=== PATIENT | female | born 2000 | race Caucasian/White ===

== ENCOUNTER 2021-04-11 14:05 | Emergency (ER) | payer OTHER, SELFPAY ==
--- NOTE | ~2021-04-11 | CT_ITS ---
EXAMINATION: CT abdomen pelvis w con DATE: 04/11/2021 15:57 INDICATION: Right lower quadrant abdominal pain. Vomiting. TECHNIQUE: Computed tomography (CT) of the abdomen and pelvis was performed with 100 mL Omnipaque 350 intravenous contrast. Automated exposure control and iterative reconstruction technique were employe d. The dose-length product was 1066.03 mGy-cm. COMPARISON: None. FINDINGS: The visualized portions of the lung bases are clear without pneumonia or pleural effusion. The heart size is normal. No pericardial effusion. The liver, gallbladder, spleen, pancreas, adrenal glands, and right kidney are normal. There is a 7 mm cyst in left kidney. There is a 2 mm stone in le ft kidney. There is an intrauterine device in expected position. There are no dilated loops of bowel. The appendix is normal. There are no pathologically enlarged lymph nodes. There is physiologic fluid in the pelvis. There is mild thoracic spondylosis. IMPRESSION: 1. No etiology for the patient's symptoms. Reviewed, dictated and finalized at location A.
[2021-04-11 14:13] VITALS: BP 121/65; PULSE 97; RESP 16; TEMP 37.3; O2SAT 100
--- NOTE | 2021-04-11 14:20 | ED.ABDPAIN ---
HPI - Abdominal Pain General Chief Complaint: Abdominal Pain Stated Complaint: RUQ pain Time Seen by Provider: 04/11/21 14:08 Source: patient and family Mode of arrival: ambulatory Limitations: no limitations History of Present Illness HPI narrative: This is a 21-year-old female that presents to the emergency department for right-sided abdominal pain present x5 days. Associated with nausea and vomiting. Also reports subjective fevers and intermittent diarrhea. Denies chest pain, shortness of breath, dysuria or hematuria. Related Data Home Medications Medication Instructions Recorded Confirmed apixaban [Eliquis] mg 04/11/21 plecanatide [Trulance] mg 04/11/21 tegaserod hydrogen maleate mg PO 04/11/21 [Zelnorm] venlafaxine mg PO 04/11/21 Allergies Allergy/AdvReac Type Severity Reaction Status Date / Time [place] And Derivatives Allergy Unknown hives Verified 11/13/15 16:16 orange flavor Allergy Unknown Verified 03/04/17 23:39 Sulfa (Sulfonamide Allergy Unknown hives Verified 11/13/15 16:15 Antibiotics) Review of Systems Review of Systems: CONSTITUTIONAL: Denies fever CARDIOVASCULAR: Denies chest pain, or edema. RESPIRATORY: Denies dyspnea. GASTROINTESTINAL: Reports abdominal pain, nausea, vomiting, and diarrhea. GENITOURINARY: Denies dysuria or hematuria. All systems reviewed & are unremarkable except as noted in HPI and below PMFSH Past Medical History Medical History (Updated 04/11/21 @ 16:31 by Ana Mena PA-C) History of DVT (deep vein thrombosis) History of IBS History of pulmonary embolism Social History Social History Smoking status: Never smoker Exam Narrative: GENERAL: Well-appearing, well-nourished, and in no acute distress. HEAD: Normocephalic, atraumatic. EYES: EOMI. CHEST: Clear to auscultation. No respiratory distress. No wheezes rales or rhonchi HEART: Regular rate and rhythm. No murmur heard. Normal peripheral pulses. ABDOMEN: Soft, nondistended, normal active bowel sounds. Tender to palpation in the right upper and lower quadrant, without guarding. EXTREMITIES: Normal range of motion. No edema. SKIN: Warm, dry, no rash. NEURO: No focal deficits. Alert and oriented x3. PSYCH: Normal mood and affect Course Vital Signs Vital signs: Vital Signs Temperature 99.2 F 04/11/21 14:13 Pulse Rate 97 04/11/21 14:13 Respiratory Rate 16 04/11/21 14:13 Blood Pressure 121/65 04/11/21 14:13 Pulse Oximetry 100 04/11/21 14:13 Temperature 99.2 F 04/11/21 14:13 Pulse Rate 97 04/11/21 14:13 Respiratory Rate 16 04/11/21 14:13 Blood Pressure 121/65 04/11/21 14:13 Pulse Oximetry 100 04/11/21 14:13 MDM - Abdominal Pain MDM Narrative Medical decision making narrative: Patient presents to the emergency department for right-sided abdominal pain present x5 days. She is afebrile and nontoxic-appearing. Vitals are stable. CBC and metabolic panel without concerning findings. Lipase is normal. UA without evidence of infection. Bedside test is negative. CT scan of the abdomen and pelvis is without acute findings. Patient and family updated on case findings. Patient is stable and felt appropriate for further outpatient evaluation. 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 She was given warnings to return to the ER Lab Data Attestation: I reviewed the patient's lab results. Result diagrams: 04/11/21 15:12 04/11/21 15:12 Labs: Lab Results 04/11/21 04/11/21 04/11/21 Range/Units 15:12 15:12 15:12 WBC 5.1 (4.5-10.0) K/mm3 RBC 4.02 L (4.2-5.4) M/mm3 Hgb 12.3 (12.0-15.0) g/dL Hct 37.4 (37.0-47.0) % MCV 93.0 (80-100) fl MCH 30.6 (26-34) pg MCHC 32.9 (32-36) g/dl RDW 12.4 (11.5-14.5) % Plt Count 278 (150-375) k/mm3 MPV 10.4 (7.4-10.4) fl Immature Gran % (Auto) 0.2 (0-0.5) % Neut % (Auto) 60.5 (45.5-73.1) % Lymph % (Auto) 29.9
[2021-04-11 15:22] LABS: Basophils Percent Auto 0.6 % (0.2-1.2); Eosinophils Absolute Auto 0.1 K/mm3 (0-0.3); Eosinophils Percent Auto 1.2 % (0-4.4); Hematocrit 37.4 % (37.0-47.0); Hemoglobin 12.3 g/dL (12.0-15.0); Immature Granulocyte Absolute 0.01 K/mm3 (0.00-0.031); Immature Granulocyte Percent A 0.2 % (0-0.5); Lymphocytes Absolute Auto 1.53 K/mm3 (0.9-3.2); Lymphocytes Percent Auto 29.9 % (18.3-44.2); Mean Corpuscular HGB Conc 32.9 g/dl (32-36); Mean Corpuscular Hemoglobin 30.6 pg (26-34); Mean Platelet Volume 10.4 fl (7.4-10.4); Monocytes Absolute Auto 0.4 K/mm3 (0.1-0.6); Monocytes Percent Auto 7.6 % (2.6-8.5); Neutrophils Absolute Auto 3.1 K/mm3 (1.3-6.7); Neutrophils Percent Auto 60.5 % (45.5-73.1); Platelet Count Result 278 k/mm3 (150-375); Red Blood Count 4.02 M/mm3 (4.2-5.4); Red Cell Distribution Width 12.4 % (11.5-14.5); White Blood Count 5.1 K/mm3 (4.5-10.0)
[2021-04-11 15:35] LABS: Alanine Aminotransferase 26 U/L (4-35); Albumin Level 4.4 g/dL (3.5-5.1); Alkaline Phosphatase 42 U/L (38-126); Anion Gap 9 mmol/L (8-16); Aspartate Amino Transferase 34 U/L (14-36); Bilirubin,Total 0.7 mg/dL (0.2-1.3); Blood Urea Nitrogen 10 mg/dL (7-17); Calcium 9.6 mg/dL (8.4-10.2); Carbon Dioxide 27 mmol/L (22-30); Chloride 105 mmol/L (98-107); Estimated CRCL calculation 133 ml/min; Estimated Glomerular Filt Rate > 60; Glucose 66 mg/dL (65-110); Lipase 111 U/L (23-300); Potassium 3.8 mmol/L (3.4-5.0); Sodium 141 mmol/L (137-145)
[2021-04-11 15:57] LABS: Add Urine Microscopic? YES; Appearance Urine Clear (Clear); Bilirubin Urine Negative (Negative); Blood Urine 2+ (Negative); Color Urine Straw (Yellow); Glucose Urine UA Negative (Negative); Ketones Urine Negative (Negative); Leukocyte Esterase Ur Negative LEU/UL (Negative); Nitrate Urine Negative (Negative); Protein Urine Negative (Negative); RBC Urine 0-2 /hpf (0-2); Specific Grav Ur 1.012 (1.001-1.035); Squamous Epithelial Cell Urine Rare /hpf (Few); Urobilinogen Urine Negative mg/dL (<2.0); WBC Urine 0-3 /hpf
[2021-04-11 16:48] LABS: INR 0.9; Prothrombin Time 11.9 Seconds (11.1-14.7)
[2021-04-11 16:49] LABS: Partial Thromboplastin Time 27.7 SECONDS (22.3-36.8)
[2021-04-11 17:45] VITALS: BP 108/58; PULSE 96; RESP 18; TEMP 37.2; O2SAT 100
== END 2021-04-11 17:45 | disposition home or self-care (01) ==
PROVIDERS: Emergency Medicine; Physician Assistant; Emergency Provider Emergency Medicine; PCP Internal Medicine
DX: R10.31 Right lower quadrant pain (principal); Z86.718 Personal history of other venous thrombosis and embolism; K58.9 Irritable bowel syndrome, unspecified; Z86.711 Personal history of pulmonary embolism
CPT/HCPCS: 36415; 74177; 80053; 81001; 81025; 83690; 85025; 85610; 85730; 99284; Q9967

== ENCOUNTER → 2021-11-19 11:00 | Outpatient (CLI) | payer OTHER, SELFPAY ==
--- NOTE | ~2021-11-19 | CT_ITS ---
EXAMINATION: CT abdomen pelvis wo/w con DATE: 11/19/2021 11:51 INDICATION: Intermittent gross hematuria TECHNIQUE: Computed tomography (CT) of the abdomen and pelvis was performed without and with 130 mL O mnipaque 350 intravenous contrast in the delayed, collecting system phase. Automated exposure control and iterative reconstruction technique were employed. The dose-length product was 2026.73 mGy-cm. COMPARISON: None FINDINGS: Lower thorax: Unremarkable Liver: Normal. Biliary/Gallbladder: No bile duct dilation. Pancreas: No mass or duct dilation. Spleen: Normal. Adrenals:No mass. Kidneys: 2 mm right lower pole nonobstructing calcification. Short segment incomplete contrast fillin g of the left mid ureter. Multiple segments of incomplete contrast filling in the proximal mid and di stal right ureter. Bilateral hypodensities, too small to characterize but most likely represent cysts . No hydronephrosis. GI tract: No small or large bowel dilation. Normal appendix. Mesentery/Peritoneum: No ascites, mass, or free air. Retroperitoneum: No mass. Pelvis: Pelvic organs are within normal limits. IUD. Soft Tissues: Soft tissues and body wall unremarkable. Bones: No acute osseous finding. IMPRESSION: Nonobstructing 2 mm right lower pole nephrolith. No hydronephrosis. No ureteral filling defects, noti ng that there was incomplete contrast filling of the right ureter. Reviewed, dictated and finalized at location K. IMPRESSION: Nonobstructing 2 mm right lower pole nephrolith. No hydronephrosis. No ureteral filling defects, noting that there was incomplete contrast filling of the righ t ureter.
--- NOTE | ~2021-11-19 | XR_ITS ---
XR abdomen/kub 1V 11/19/2021 11:51 INDICATION: Intermittent gross hematuria TECHNIQUE: KUB COMPARISON: None FINDINGS: Bowel gas pattern is normal. There is no evidence of free air, mass, organomegaly, ascites or obstruction. No abnormal calculi are seen. The bones appear intact. There is an IUD in the pelv is. There are pelvic phleboliths. IMPRESSION: 1: No acute abdominal abnormality identified. Reviewed, dictated and finalized at location A.
[2021-11-19 11:26] LABS: Estimated Glomerular Filt Rate > 60
== END ==
PROVIDERS: PCP Internal Medicine; Visit Provider Nurse Practitioner Family
DX: R31.0 Gross hematuria (principal); N20.0 Calculus of kidney
CPT/HCPCS: 74018; 74178; Q9967

== ENCOUNTER 2022-06-16 09:53 | Emergency (ER) | payer OTHER, SELFPAY ==
[2022-06-16 10:01] VITALS: BP 118/65; PULSE 107; RESP 16; TEMP 37.2; O2SAT 99
--- NOTE | 2022-06-16 11:02 | ED.URI ---
HPI - URI/Sore Throat General Chief Complaint: Upper Respiratory Infection Stated Complaint: sore throat Time Seen by Provider: 06/16/22 11:02 Source: patient, RN notes reviewed and old records reviewed Mode of arrival: ambulatory Limitations: no limitations History of Present Illness HPI Narrative: 22-year-old female presents to the [facility] with complaints of a sore throat for 2 days., no lymph node swelling, exposed to strep. Related Data Home Medications Medication Instructions Recorded Confirmed aspirin 81 mg tablet 81 mg PO DAILY 06/16/22 06/16/22 buspirone 15 mg tablet 15 mg PO DAILY 06/16/22 06/16/22 cabergoline 0.5 mg tablet 0.5 mg PO DAILY 06/16/22 06/16/22 phentermine 15 mg capsule 15 mg PO DAILY 06/16/22 06/16/22 spironolactone 100 mg tablet 100 mg PO DAILY 06/16/22 06/16/22 Allergies Allergy/AdvReac Type Severity Reaction Status Date / Time [place] And Derivatives Allergy Unknown hives Verified 06/16/22 10:19 orange flavor Allergy Unknown Other Verified 06/16/22 10:19 Sulfa (Sulfonamide Allergy Unknown hives Verified 06/16/22 10:19 Antibiotics) Review of Systems Review of Systems: All systems reviewed & are unremarkable except as noted in HPI and below Constitutional: Constitutional: Reports as per HPI, Reports chills, Reports fatigue and Reports fever(s) Eyes: Eyes: Reports no additional eye complaints ENT: Reports as per HPI and Reports sore throat Cardiovascular: Cardiovascular: Reports no additional cardiovascular complaints, Denies chest pain and Denies dyspnea Respiratory: Respiratory: Reports no additional respiratory complaints, Denies chest congestion, Denies cough and Denies dyspnea Gastrointestinal: Gastrointestinal: Reports no additional gastrointestinal complaints, Denies abdominal pain, Denies nausea and Denies vomiting Musculoskeletal: Musculoskeletal: Reports no additional musculoskeletal complaints Integumentary/Breasts: Skin/Breast: Reports system reviewed and no additional complaints, except as docu Neurologic: Reports system reviewed and no additional complaints, except as documented Psychiatric: Psychiatric: Reports no additional psychiatric complaints Allergic/Immunologic: Allergic/Immunologic: Reports no additional allergic/immunologic complaints PMFSH Past Medical History Medical History History of DVT (deep vein thrombosis) History of IBS History of pulmonary embolism Social History Social History Smoking status: Never smoker Comments At the time of my signature, I reviewed and agree with the nursing past medical, surgical, social, and family history. There is no relevant family history pertinent to the patient complaint. Exam Const: General: cooperative, healthy appearing, comfortable, no acute distress, well developed, alert and well nourished Nutritional Appearance: well nourished Orientation/consciousness: patient oriented x3 Limitations: no limitations HENMT: Head: normal to inspection Ears: hearing grossly normal bilaterally and external ears normal Face/Nose/Sinus: Normal external nose present, Normal nares present, Normal nasal mucous membranes and turbinates present and normal facial exam Face and sinus: normal facial exam Mouth: Yes Normal oral and palatal mucosa present, Yes lip normal and Yes moist mucous membranes Throat: uvula midline, abnormal tonsil bilateral erythema, exudates and hypertrophy 3+ and posterior oropharynx abnormal erythema; no edema and no exudates Eyes: General: appearance normal, both eyes and all related structures Alignment and Position: alignment normal Periorbital: periorbital findings normal Conjunctivae: conjunctivae normal Pupils: Equal, round and reactive pupils present EOM: EOMs intact bilaterally Neck: Neck: normal visual inspection, full ROM, no meningeal signs and lymphadenopathy (Bilateral subman
== END 2022-06-16 11:18 | disposition home or self-care (01) ==
PROVIDERS: Emergency Provider Nurse Practitioner; PCP Internal Medicine
DX: J03.90 Acute tonsillitis, unspecified (principal); Z86.718 Personal history of other venous thrombosis and embolism; Z86.711 Personal history of pulmonary embolism
CPT/HCPCS: 87081; 87147; 99213; G0463

== ENCOUNTER 2022-07-12 10:49 | Emergency (ER) | payer OTHER, SELFPAY ==
[2022-07-12 10:56] VITALS: BP 129/69; PULSE 100; RESP 16; TEMP 37.1; O2SAT 99
--- NOTE | 2022-07-12 11:02 | ED.URI ---
HPI - URI/Sore Throat General Stated Complaint: Sore Throat Time Seen by Provider: 07/12/22 11:02 Source: patient Mode of arrival: ambulatory Limitations: no limitations History of Present Illness HPI Narrative: 22-year-old female presents with complaint of nasal congestion, sore throat, body aches, fatigue, mild cough X5 days. Reports low-grade fever yesterday. had strep throat approximately 3 weeks ago. Denies nausea vomiting diarrhea. Denies chest pain or shortness breath. All systems reviewed and negative except as noted above. Related Data Home Medications Medication Instructions Recorded Confirmed aspirin 81 mg tablet 81 mg PO DAILY 06/16/22 06/16/22 buspirone 15 mg tablet 15 mg PO DAILY 06/16/22 06/16/22 cabergoline 0.5 mg tablet 0.5 mg PO DAILY 06/16/22 06/16/22 phentermine 15 mg capsule 15 mg PO DAILY 06/16/22 06/16/22 spironolactone 100 mg tablet 100 mg PO DAILY 06/16/22 06/16/22 Allergies Allergy/AdvReac Type Severity Reaction Status Date / Time [place] And Derivatives Allergy Unknown hives Verified 07/12/22 11:03 orange flavor Allergy Unknown Other Verified 07/12/22 11:03 Sulfa (Sulfonamide Allergy Unknown hives Verified 07/12/22 11:03 Antibiotics) peanut Allergy Unknown Verified 07/12/22 11:03 tree nut Allergy Unknown Verified 07/12/22 11:03 Review of Systems Review of Systems: CONSTITUTIONAL: Reports fever, chills, or sweats. EYES: Denies visual changes, redness, or discharge. ENT: reports rhinorrhea, congestion, sore throat, or otalgia. CARDIOVASCULAR: Denies chest pain, palpitations, or edema. RESPIRATORY: reports cough. Denies dyspnea. GASTROINTESTINAL: Denies abdominal pain, nausea, vomiting, or diarrhea. GENITOURINARY: Denies dysuria or hematuria. SKIN: Denies rash or itching. MUSCULOSKELETAL: Denies back pain, joint pain, or myalgia. NEUROLOGIC: Denies headache, numbness, or weakness. PSYCHIATRIC: Denies anxiety or depression. All other systems reviewed are negative, except as documented in HPI. [facility] Past Medical History Medical History History of DVT (deep vein thrombosis) History of IBS History of pulmonary embolism Social History Social History Smoking status: Never smoker Comments At time of signature, agree with nursing past medical, surgical, social and family history. There is no relevant family history pertinent to the presenting complaint. Exam Narrative: GENERAL: This is a well-nourished, well-developed patient. Patient ill-appearing but no distress. HEAD: normocephalic, atraumatic. EYES: PERRL. Sclera clear/white. Vision is grossly intact. EARS: External ears normal, auditory canals clear and without drainage, TMs normal without perforation. Hearing grossly intact. NOSE: External nose normal with Clear nasal drainage, erythema to both nares. THROAT: Mucous membranes moist, Erythema NECK: Neck supple, non-tender without lymphadenopathy, masses or thyromegaly. CARDIOVASCULAR: Regular rate and rhythm without murmurs, gallops, or rubs. RESPIRATORY: Clear to auscultation. Breath sounds equal bilaterally. No wheezes, rales, or rhonchi. SKIN: warm, Dry, intact with no suspicious lesions or rash, good texture and turgor. NEURO: awake, alert, and oriented to person, place and time. Course Course Level of Care: Express Care Visit Vital Signs Vital signs: Vital Signs Temperature 37.1 C 07/12/22 10:56 Pulse Rate 100 07/12/22 10:56 Respiratory Rate 16 07/12/22 10:56 Blood Pressure 129/69 07/12/22 10:56 Pulse Oximetry 99 07/12/22 10:56 Oxygen Delivery Room Air 07/12/22 10:56 Temperature 37.1 C 07/12/22 10:56 Pulse Rate 100 07/12/22 10:56 Respiratory Rate 16 07/12/22 10:56 Blood Pressure 129/69 07/12/22 10:56 Pulse Oximetry 99 07/12/22 10:56 Oxygen Delivery Room Air 07/12/22 10:56 reviewed MDM
== END 2022-07-12 11:29 | disposition home or self-care (01) ==
PROVIDERS: Emergency Provider Nurse Practitioner Family; PCP Internal Medicine
DX: U07.1 COVID-19 (principal); Z86.718 Personal history of other venous thrombosis and embolism; Z86.711 Personal history of pulmonary embolism
CPT/HCPCS: 87426; 87880; 99213; C9803; G0463

== ENCOUNTER 2022-08-17 10:17 | Emergency (ER) | payer OTHER, SELFPAY ==
--- NOTE | 2022-08-17 10:28 | ED.URI ---
HPI - URI/Sore Throat General Chief Complaint: Upper Respiratory Infection Stated Complaint: sorethroat Time Seen by Provider: 08/17/22 10:50 Source: patient Mode of arrival: ambulatory Limitations: no limitations History of Present Illness HPI Narrative: Ginny is a 22-year-old female patient presenting to the clinic today with complaints of sore throat x1 day. She reports no fever or chills. States she is having some nausea. Has had strep twice in the last 2 months MD elicited complaint: sore throat and nasal congestion Related Data Home Medications Medication Instructions Recorded Confirmed cabergoline 0.5 mg tablet 0.5 mg PO DAILY 08/17/22 08/17/22 liraglutide (weight loss) 3 mg/0.5 3 mg subcut DAILY 08/17/22 08/17/22 mL (18 mg/3 mL) subcut pen injector (Saxenda) Allergies Allergy/AdvReac Type Severity Reaction Status Date / Time [place] And Derivatives Allergy Unknown hives Verified 08/17/22 10:30 orange flavor Allergy Unknown Other Verified 08/17/22 10:30 Sulfa (Sulfonamide Allergy Unknown hives Verified 08/17/22 10:30 Antibiotics) gluten Allergy Gastrointestinal Verified 08/17/22 10:31 Upset peanut Allergy Unknown Verified 08/17/22 10:30 tree nut Allergy Unknown Verified 08/17/22 10:30 wheat Allergy Gastrointestinal Verified 08/17/22 10:31 Upset Review of Systems Review of Systems: Pertinent positives per HPI. Patient denies any fever, chills, rash, headache, visual changes, dizziness, cough, shortness of breath, chest pain, palpitations, nausea, vomiting, diarrhea, constipation, abdominal pain, or any urinary issues. PMFSH Past Medical History Medical History History of DVT (deep vein thrombosis) History of IBS History of pulmonary embolism Social History Social History Smoking status: Never smoker Comments At the time of my signature, I reviewed and agree with the nursing past medical, surgical, social, and family history. There is no relevant family history pertinent to the patient complaint. Exam Narrative: General: Well-developed, well nourished, in no apparent distress Head: Normocephalic, atraumatic Eyes: Pupils equally round and reactive to light bilaterally, EOM intact, sclera and conjunctive clear, no discharge, lids normal Ears: TMs intact and clear, ear canals clear, no drainage, grossly hearing normal. Nose: Nares patent, no discharge, no inflammation, no sinus tenderness. Mouth: Oral pharynx without lesions or masses, good dentition, MMM. Oropharynx red with mild tonsillar enlargement Neck: Supple, trachea midline, mild enlargement of anterior cervical nodes, no thyroid masses or goiter palpable. Cardio: Regular rate and rhythm, s1 and s2 normal, no murmur appreciated. Resp: Clear to auscultation bilaterally, no rhonchi, rales, wheezing or rubs Course Course Emergency Course: Portions of this record may have been created with voice recognition software. Level of Care: Express Care Visit Vital Signs Vital signs: Vital Signs Temperature 37.0 C 08/17/22 10:53 Pulse Rate 99 08/17/22 10:53 Respiratory Rate 18 08/17/22 10:53 Blood Pressure 107/61 08/17/22 10:53 Pulse Oximetry 100 08/17/22 10:53 Oxygen Delivery Room Air 08/17/22 10:53 Temperature 37.0 C 08/17/22 10:53 Pulse Rate 99 08/17/22 10:53 Respiratory Rate 18 08/17/22 10:53 Blood Pressure 107/61 08/17/22 10:53 Pulse Oximetry 100 08/17/22 10:53 Oxygen Delivery Room Air 08/17/22 10:53 Vital signs reviewed MDM - URI/Sore Throat MDM Narrative Medical decision making narrative: At the time of visit patient is resting comfortably on the exam table. Strep screen was obtained and was positive in the clinic today. Prescription for Augmentin was sent to the pharmacy and supportive measures were discussed with the patient and she
[2022-08-17 10:53] VITALS: BP 107/61; PULSE 99; RESP 18; TEMP 37; O2SAT 100
== END 2022-08-17 10:51 | disposition home or self-care (01) ==
PROVIDERS: Emergency Provider Nurse Practitioner Family; PCP Internal Medicine
DX: J02.0 Streptococcal pharyngitis (principal); Z86.718 Personal history of other venous thrombosis and embolism; Z86.711 Personal history of pulmonary embolism
CPT/HCPCS: 87880; 99213; G0463

== ENCOUNTER 2022-10-17 19:55 | Emergency (ER) | payer OTHER, SELFPAY ==
--- NOTE | ~2022-10-17 | XR_ITS ---
XR shoulder RT min 2V 10/17/2022 20:40 INDICATION: Shoulder pain after fall PROCEDURE: 3 views right shoulder COMPARISON: No prior studies for comparison. FINDINGS: Fracture, dislocation or subluxation is not identified. The soft tissues appear within norm al limits. No foreign bodies are identified. IMPRESSION: 1: NO ACUTE BONE OR JOINT ABNORMALITY IDENTIFIED. Reviewed, dictated and finalized at location A.
--- NOTE | ~2022-10-17 | XR_ITS ---
XR wrist RT 2V 10/17/2022 20:43 INDICATION: Right wrist pain after fall PROCEDURE: 2 views right wrist COMPARISON: 04/10/2012 FINDINGS: Fracture, dislocation or subluxation is not identified. The soft tissues appear within norm al limits. No foreign bodies are identified. IMPRESSION: 1: NO ACUTE BONE OR JOINT ABNORMALITY IDENTIFIED. Reviewed, dictated and finalized at location A.
--- NOTE | ~2022-10-17 | XR_ITS ---
XR humerus RT 10/17/2022 20:41 INDICATION: Right arm pain PROCEDURE: 2 views right humerus COMPARISON: No prior studies for comparison. FINDINGS: Fracture, dislocation or subluxation is not identified. The soft tissues appear within norm al limits. No foreign bodies are identified. IMPRESSION: 1: NO ACUTE BONE OR JOINT ABNORMALITY IDENTIFIED. Reviewed, dictated and finalized at location A.
--- NOTE | ~2022-10-17 | XR_ITS ---
XR elbow RT 2V 10/17/2022 20:40 INDICATION: Right elbow pain after fall PROCEDURE: 2 views right elbow COMPARISON: No prior studies for comparison. FINDINGS: Fracture, dislocation or subluxation is not identified. The soft tissues appear within norm al limits. No foreign bodies are identified. IMPRESSION: 1: NO ACUTE BONE OR JOINT ABNORMALITY IDENTIFIED. Reviewed, dictated and finalized at location A.
[2022-10-17 20:16] VITALS: BP 118/83; PULSE 89; RESP 20; TEMP 36.4; O2SAT 100
--- NOTE | 2022-10-17 21:11 | ED.FALL ---
HPI - Fall General Chief Complaint: Fall Stated Complaint: fall, arm pain Time Seen by Provider: 10/17/22 20:44 History of Present Illness HPI Narrative: Patient is a 22-year-old female presenting with right arm pain. 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 She was getting out of the pool when she slipped. She states that she hyperextended her right elbow and then fell forward striking her right forearm. States that she has pain in her right elbow and right wrist. States that she has some tingling in her right pinky and ring finger. Denies striking her head. Denies further injuries or complaints. Related Data Home Medications Medication Instructions Recorded Confirmed cabergoline 0.5 mg tablet 0.5 mg PO DAILY 08/17/22 08/17/22 liraglutide (weight loss) 3 mg/0.5 3 mg subcut DAILY 08/17/22 08/17/22 mL (18 mg/3 mL) subcut pen injector (Saxenda) Allergies Allergy/AdvReac Type Severity Reaction Status Date / Time [place] And Derivatives Allergy Unknown hives Verified 10/17/22 20:44 orange flavor Allergy Unknown Other Verified 10/17/22 20:44 Sulfa (Sulfonamide Allergy Unknown hives Verified 10/17/22 20:44 Antibiotics) gluten Allergy Gastrointestinal Verified 10/17/22 20:44 Upset peanut Allergy Unknown Verified 10/17/22 20:44 tree nut Allergy Unknown Verified 10/17/22 20:44 wheat Allergy Gastrointestinal Verified 10/17/22 20:44 Upset Review of Systems Review of Systems: All systems reviewed & are unremarkable except as noted in HPI and below PMFSH Past Medical History Medical History History of DVT (deep vein thrombosis) History of IBS History of pulmonary embolism Social History Social History Smoking status: Never smoker Exam Narrative: GENERAL: Well-appearing, well-nourished, and in no acute distress. HEAD: Normocephalic, atraumatic. EYES: PERRLA and EOMI. ENT: Nares clear, no rhinorrhea or epistaxis. Mucous membranes moist. NECK: Supple. CHEST: No respiratory distress. HEART: Regular rate and rhythm. ABDOMEN: Soft, nontender, nondistended EXTREMITIES: Normal range of motion. No edema. Tenderness over right lateral elbow and distal humerus, neurovascularly intact SKIN: Warm, dry, no rash. NEURO: No focal deficits. Alert and oriented x3. PSYCH: Normal mood and affect. Course Vital Signs Vital signs: Vital Signs Temperature 97.6 F 10/17/22 20:16 Pulse Rate 89 10/17/22 20:16 Respiratory Rate 20 10/17/22 20:16 Blood Pressure 118/83 10/17/22 20:16 Pulse Oximetry 100 10/17/22 20:16 Oxygen Delivery Room Air 10/17/22 20:16 Temperature 97.6 F 10/17/22 20:16 Pulse Rate 89 10/17/22 20:16 Respiratory Rate 20 10/17/22 20:16 Blood Pressure 118/83 10/17/22 20:16 Pulse Oximetry 100 10/17/22 20:16 Oxygen Delivery Room Air 10/17/22 20:16 MDM - Fall MDM Narrative Medical decision making narrative: Patient is a 22-year-old female presenting with right elbow pain after a fall. Vitals within normal limits. Exam remarkable for the above. X-rays of the right extremity showed no osseous abnormalities. Patient is neurovascularly intact. She is complaining of some tingling in her right pinky and ring finger. Consistent with an ulnar neuropathy likely secondary to the recent trauma. Advised Tylenol and ibuprofen for pain control. Provided a sling to be used for the next few days for comfort. Advised orthopedic follow-up. Appropriate return precautions given. Discharged in stable condition. Differential Diagnosis Differential diagnosis: Likely other (wrist fracture, humerus fracture, fall, contusion, ulnar neuropathy ) Critical Care Time Critical Care Time Critical Care Time: No Discharge Plan Discharge Clinical Impression: Fall, Right elbow pain, Neuropraxia of right ulnar nerve Patient Disposition:
[2022-10-17] MEDS: IBUPROFEN 400 MG TABLET 800 MG PO (21:26)
[2022-10-17] MEDS: ACETAMINOPHEN 500 MG TABLET 1000 MG PO (21:26)
== END 2022-10-17 21:32 | disposition home or self-care (01) ==
PROVIDERS: Emergency Provider Emergency Medicine; PCP Internal Medicine
DX: S54.01XA Injury of ulnar nerve at forearm level, right arm, initial encounter (principal); K58.9 Irritable bowel syndrome, unspecified; Z86.718 Personal history of other venous thrombosis and embolism; Z86.711 Personal history of pulmonary embolism; W01.0XXA Fall on same level from slipping, tripping and stumbling without subsequent striking against object, initial encounter
CPT/HCPCS: 73030; 73060; 73070; 73100; 99283; 99284; A4565; A9270

== ENCOUNTER → 2022-11-12 13:53 | Outpatient (CLI) | payer OTHER, SELFPAY ==
--- NOTE | ~2022-11-12 | XR_ITS ---
EXAMINATION: XR chest 2V 11/12/2022 14:41 INDICATION: Cough and chest pain PROCEDURE: 2 view chest COMPARISON: 06/03/2016 FINDINGS: The lungs are clear. The cardiomediastinal silhouette is within normal limits. There are no pleural effusions. There is no pneumothorax suspected. IMPRESSION: 1: NO ACUTE CARDIOPULMONARY DISEASE. Reviewed, dictated and finalized at location L.
== END ==
PROVIDERS: PCP Internal Medicine; Visit Provider Registered Nurse
DX: R31.0 Gross hematuria (principal)
CPT/HCPCS: 71046